=== PATIENT | female | born 1950 | race Caucasian/White ===

== ENCOUNTER → 2016-03-04 | Outpatient (CLI) | payer MEDICARE ==
--- NOTE | 2016-03-04 14:53 | PN ---
DATE OF SERVICE: 03/04/2016 A 66-year-old lady who has been followed in the [facility] for treatment of obstructive sleep apnea-hypopnea syndrome. Recently patient received a new CPAP unit. She likes it, she does not have any problem with the usage of equipment. She likes the new type of nasal pillow mask. She uses equipment every night. During the last month she traveled and she took small travel unit with her and subsequently, she did not use this new unit. Present usage of the new units was 6 out of 30 nights for more than 4 hours. Apnea-hypopnea index reading from the machine is 0.9, which is perfect. Leak is only 1 L/min. [place] Sleepiness Scale is 6. MEDICATIONS: Artane, Risperdal BuSpar, hydroxyzine, Lamictal, Zocor, Prilosec equally the family. During physical exam, the patient in no distress. VITAL SIGNS: BP 140/79, HR 62, RR 16. Weight 152. Temperature 98.2. Oxygen saturation at room air 99%. HEENT: PERRLA, EOMI. LUNGS: Clear. HEART: S1, S2, regular. ABDOMEN: Soft, nontender. EXTREMITIES: No edema. IMPRESSION: 1. Obstructive sleep apnea-hypopnea syndrome on control with CPAP at 6 cm of water. Patient benefiting from treatment. Patient did not show good compliance with the usage of new machine that that related to usage of her travel unit, because she was on location for the last month. 2. Acid reflux. 3. Depression. 4. Anxiety. 5. Hyperlipidemia. PLAN: 1. Continue treatment with CPAP every night for the whole night. 2. Sleep hygiene with regular time in bed for at least 8 hours. 3. No driving if feeling any sleepiness. Thank you very much for allowing me to participate in the management of your patient. Sincerely, Jhon Andrews MD, PhD, FAASM. Diplomat of [place] [employer], Sleep Medicine Board by [place] [employer] [place] [employer] Worker of [facility] [place]
== END | disposition home or self-care (01) ==

== ENCOUNTER → 2016-12-15 | Outpatient (CLI) | payer MEDICARE ==
[2016-12-15 12:00] LABS: CH 29.9; CHCM 31.5; HCT 42.1 % (34.0-46.0); HDW 2.46; HGB 13.2 gm/dL (11.4-16.0); MCHC 31.3 g/dL (31.0-37.0); MCV 95.6 fL (80.0-100.0); Mean Platelet Volume 7.8; RDW 12.8 % (11.5-15.5); WBC 4.4 k/uL (3.8-10.6)
[2016-12-15 12:22] LABS: ALT 19 U/L (9-52); AST 20 U/L (14-36); Alkaline Phosphatase 60 U/L (38-126); Anion Gap 11 mmol/L; Blood Urea Nitrogen 20 mg/dL (7-17); Carbon Dioxide 27 mmol/L (22-30); Chloride 110 mmol/L (98-107); Cholesterol 196 mg/dL (<200); Glucose 97 mg/dL (74-99); HDL Cholesterol 74 mg/dL (40-60); Non-African American GFR(MDRD) 51 (>60 ml/min/1.73 sqM); Potassium 5.2 mmol/L (3.5-5.1); Sodium 148 mmol/L (137-145); Total Bilirubin 0.3 mg/dL (0.2-1.3); Total Protein 7.2 g/dL (6.3-8.2)
== END | disposition home or self-care (01) ==
LOC: LABWHC1 11:06
PROVIDERS: ATTEND Internal Medicine Gastroenterology
DX: E78.00 Pure hypercholesterolemia, unspecified (principal)
CPT/HCPCS: 36415; 80053; 80061; 85027

== ENCOUNTER → 2017-05-25 | Outpatient (CLI) | payer MEDICARE ==
[2017-05-25 08:14] LABS: HCT 41.8 % (34.0-46.0); HGB 13.2 gm/dL (11.4-16.0); MCH 28.2 pg (25.0-35.0); MCHC 31.7 g/dL (31.0-37.0); MCV 89.1 fL (80.0-100.0); Mean Platelet Volume 7.7; Platelet Count 219 k/uL (150-450); RBC 4.69 m/uL (3.80-5.40); RDW 12.8 % (11.5-15.5); WBC 5.4 k/uL (3.8-10.6)
[2017-05-25 08:31] LABS: Albumin 4.6 g/dL (3.5-5.0); Calcium 10.1 mg/dL (8.4-10.2); Potassium 4.2 mmol/L (3.5-5.1); Total Bilirubin 0.6 mg/dL (0.2-1.3); Total Protein 7.3 g/dL (6.3-8.2)
== END | disposition home or self-care (01) ==
LOC: LABWHC1 07:34
PROVIDERS: ATTEND Internal Medicine Gastroenterology
DX: E78.00 Pure hypercholesterolemia, unspecified (principal)
CPT/HCPCS: 36415; 80053; 80061; 85027

== ENCOUNTER → 2017-10-18 | Outpatient (CLI) | payer MEDICARE ==
--- NOTE | 2017-10-18 19:32 | CONS ---
CONSULTATION REASON FOR CONSULTATION: Sleep apnea. This is a 67-year-old female patient coming in to establish herself in my office regarding THANG. The patient has been diagnosed having obstructive sleep apnea. Currently she is on CPAP pressure of 6 cm of water. Diagnosis was established through our Sleep Center as the patient used to see Dr. Andrews. She did not bring her CPAP machine with her today. She claims that she has been using it every night and her snoring has subsided and she is not having any major hypersomnia or sleepiness during the day. She goes to bed around 11:30 p.m., wakes up 6:00 am in the morning, averaging around 7 hours of sleep. She does snore if she does not use her CPAP machine and she has made an effort to continue using her treatment for all these years. I am not sure as far as the exact type of mask interface that she is using. The patient claims that she has a full face mask and this will be ordered through her DME. Her comorbidities include acid reflux, depression, anxiety and hyperlipidemia. PAST MEDICAL HISTORY: 1. Obstructive sleep apnea. 2. Anxiety/depression. 3. Acid reflux. 4. Hyperlipidemia. PAST SURGICAL HISTORY: Previous colonoscopy. DRUG ALLERGIES: WELLBUTRIN. OUTPATIENT MEDICATION LIST: Includes: BuSpar 30 mg twice a day. Lamotrigine 200 mg twice a day. Cogentin twice a day. Thorazine 50 mg twice a day. Naprosyn 500 mg on as needed basis. Topamax 50 mg in the morning 100 in the evening. Requip 0.5 mg twice a day. SOCIAL HISTORY: Nonsmoker. No history of alcohol. No history of IV drugs. FAMILY HISTORY: Negative for sleep apnea. REVIEW OF SYSTEMS: 12-point review of system was done. Positive findings are mentioned above history of present illness. PHYSICAL EXAMINATION: BP is 129/80, pulse 78, respirations 16, temperature 97.9, saturation 98% on room air. Weight is 135, height is 5 feet 4 inches, neck size is 30-1/2 inches. GENERAL APPEARANCE: Calm, comfortable. Head is atraumatic, normocephalic. NECK: Supple. There is no JVD. No goiter or neck masses. LUNGS: Clear to auscultation. HEART: Sounds regular rhythm. Normal S1, S2. No S3. No murmurs. ABDOMEN: Soft, nontender. No organomegaly. EXTREMITIES: No edema. No cyanosis or clubbing. NEUROLOGIC: The patient is awake and alert. There is no focal neurological deficits. PSYCHIATRICALLY: Negative for any acute anxiety or depression at this point in time. IMPRESSION: 1. Symptomatic obstructive sleep apnea still on CPAP pressure of 6. Clinically the patient seems to be improving. I would like to see her CPAP machine for a compliancy check at a later stage. 2. Bipolar disorder/chronic anxiety. 3. Depression. 4. Hyperlipidemia. 5. Acid reflux. PLAN: 1. I reviewed the patient's CPAP supplies. 2. We will schedule a followup appointment to re-evaluate this patient along with her CPAP machine to assess her compliancy. 3. We will continue to follow. MMCASSL / IJN: [id number] /
== END | disposition home or self-care (01) ==
LOC: SLEEP 14:42
PROVIDERS: ATTEND Internal Medicine Critical Care Medicine
DX: G47.33 Obstructive sleep apnea (adult) (pediatric) (principal); F41.9 Anxiety disorder, unspecified; F32.9 Major depressive disorder, single episode, unspecified; E78.5 Hyperlipidemia, unspecified; K21.9 Gastro-esophageal reflux disease without esophagitis; Z88.8 Allergy status to other drugs, medicaments and biological substances; Z79.899 Other long term (current) drug therapy; Z99.89 Dependence on other enabling machines and devices
CPT/HCPCS: 99211

== ENCOUNTER → 2017-11-21 | Outpatient (CLI) | payer MEDICARE ==
--- NOTE | 2017-11-22 16:21 | MR ---
EXAMINATION TYPE: MR brain wo con DATE OF EXAM: 11/21/2017 COMPARISON: NONE HISTORY: Fainting, Tremors, Confusion, HX of TIA TECHNIQUE: Multiplanar, multisequence imaging of the brain and brainstem is performed without IV cont rast. FINDINGS: Diffusion weighted images demonstrate no evidence of a recent infarct or other diffusion abnormality. There is no worrisome extra-axial fluid collection there is ventricular and sulcal prominence consist ent with mild age-related cerebral atrophy. Some T2 hyperintensity periventricular white matter is fe lt to reflect product of minimal to mild chronic small vessel ischemic change in patient of this age. Midline structures demonstrate normal morphology. The craniocervical junction appears within normal limits. Normal vascular flow voids are present. The visualized sinuses are clear and the globes are i ntact. IMPRESSION: Mild to minimal diffuse age-related cerebral atrophy and chronic small vessel ischemic ch amber. No evidence of a recent infarct. No suspicious focal edema.
== END ==
LOC: RADMRIMAIN 15:31
PROVIDERS: ATTEND Psychiatry & Neurology Neurology
DX: G31.1 Senile degeneration of brain, not elsewhere classified (principal); I67.82 Cerebral ischemia; Z86.73 Personal history of transient ischemic attack (TIA), and cerebral infarction without residual deficits
CPT/HCPCS: 70551

== ENCOUNTER → 2018-01-20 | Outpatient (CLI) | payer MEDICARE ==
--- NOTE | 2018-01-20 07:50 | MR ---
EXAMINATION TYPE: MR lumbar spine wo con DATE OF EXAM: 01/20/2018 COMPARISON: NONE HISTORY: Low back pain, disc disease L5-S1 level, and right lower extremity radiculopathy all per ord er. Low back pain for 6 months going into right leg per patient. TECHNIQUE: Multiplanar, multisequence imaging of the lumbar spine is performed without IV contrast. FINDINGS: Sagittal images of the lumbar spine show vertebral body heights and alignment to appear sat isfactory. Multilevel disc desiccation is seen but disc space heights are fairly well-maintained. No large posterior disc herniations are seen on sagittal images. The conus medullaris is normal in posi tion and signal ending mid L1 level. The bone marrow signal intensity is within normal limits. No si gnificant spurring is seen. Axial images show the T12-L1 and L1-L2 levels to appear within normal limits. Axial images at L2-L3 and L3-L4 levels show mild broad disc bulges mildly effacing anterior thecal sa c with mild facet degenerative changes bilaterally. Bilateral neural foramina remain patent. Axial images at the L4-L5 level show mild to moderate facet degenerative changes bilaterally. There i s broad-based posterior disc protrusion minimally effacing anterior thecal sac. Bilateral neural fora suri are patent. Axial images at the L5-S1 level show moderate facet degenerative changes bilaterally. There is broad- based posterior disc protrusion minimally effacing anterior thecal sac. Bilateral neural foramina are patent. There is 1.1 cm Tarlov cyst posterior S2 level sagittal image 5 noted. No suspicious incidental retro peritoneal findings are seen. IMPRESSION: Multilevel degenerative changes in the mid to lower lumbar spine as detailed above. No si gnificant herniation seen to account for patient's right-sided radiculopathy type symptoms however.
== END | disposition home or self-care (01) ==
LOC: RADMRIMAIN 07:06
PROVIDERS: ATTEND Orthopaedic Surgery Orthopaedic Surgery of the Spine
DX: M47.816 Spondylosis without myelopathy or radiculopathy, lumbar region (principal)
CPT/HCPCS: 72148

== ENCOUNTER → 2018-09-25 | Outpatient (CLI) | payer MEDICARE | END | disposition home or self-care (01) | LOC: LABWHC1 10:01 | PROVIDERS: ATTEND Psychiatry & Neurology Neurology | DX: R41.0 Disorientation, unspecified (principal); G25.0 Essential tremor; G25.81 Restless legs syndrome; F41.8 Other specified anxiety disorders; Z86.73 Personal history of transient ischemic attack (TIA), and cerebral infarction without residual deficits; Z79.899 Other long term (current) drug therapy | CPT/HCPCS: 36415; 82310; 82652 ==

== ENCOUNTER → 2020-07-29 | Outpatient (CLI) | payer MEDICARE | LOC: SLEEP 13:35 | PROVIDERS: ATTEND Internal Medicine Critical Care Medicine | DX: G47.33 Obstructive sleep apnea (adult) (pediatric) (principal); Z53.9 Procedure and treatment not carried out, unspecified reason ==

== ENCOUNTER → 2020-07-31 | Outpatient (CLI) | payer MEDICARE ==
--- NOTE | 2020-07-31 19:08 | CONS ---
CONSULTATION DATE OF SERVICE: 07/31/2020 70-year-old lady has been re-evaluated in Sleep Center for obstructive sleep apnea- hypopnea syndrome. HISTORY OF PRESENT ILLNESS/SLEEP WAKE EVALUATION: Patient's has history of obstructive sleep apnea since 2013. She was treated with CPAP successfully, but then she stopped snoring, lost weight and stopped using her CPAP equipment about 2 years ago. For the last several months, patient's started to wake up multiple times from sleep up to 7 times with one episode of nocturia. Her sleep schedule now from midnight until 5:00 am. She grinds her teeth. Has sweating during the sleep. No history of hypnagogic hallucinations, sleep paralysis or cataplexy. She changed her weight from about 170 pounds to 129 pounds, which is about 40 pounds less. PAST MEDICAL HISTORY: Positive for hypertension, hyperlipidemia, acid reflux, depression, bipolar. PAST SURGICAL HISTORY: Bladder suspension. MEDICATIONS: Metoprolol 50 mg twice a day. BuSpar 30 mg twice a day. Simvastatin 20 mg once a day. Senna 50 mg twice a day. Omeprazole once a day, losartan hydrochlorothiazide 50-125 mg once a day. SOCIAL HISTORY: Positive for smoking in the past; quit 15 years ago. Alcohol consumption occasional. FAMILY HISTORY: Positive for heart problems. REVIEW OF SYSTEMS: Multiple awakenings from sleep, sleepiness during the day. [place] Sleepiness Scale increased to 11. PHYSICAL EXAMINATION: GENERAL: A 70-year-old lady without distress. BP 159/81, HR 50, RR 12, height 5 feet 5-1/2 inches, weight 129.6 pounds, body mass index 21.1, temperature 96.7, oxygen saturation at room air 98%. HEENT: PERRLA, EOMI. Oropharynx extremely low position of soft palate. Mallampati 4. NECK: Supple, no JVD. Thyroid is not palpable. LUNGS: Clear to percussion and to auscultation. Good air exchange. No wheezing or rhonchi. HEART: S1, S2 regular. No murmurs, gallops, or rubs. ABDOMEN: Soft and nontender. Bowel sounds are present. No organomegaly appreciated. EXTREMITIES: No clubbing or cyanosis. ELDERLY COMPANION: Restless movements of legs. IMPRESSION: 1. History of obstructive sleep apnea in the past, snoring, multiple awakenings from sleep, extremely low position of soft palate. Possible obstructive sleep apnea- hypopnea syndrome at the present time. 2. Restless legs movements during physical exam, possibly periodic limb movements during the sleep. 3. Hypertension. 4. Hyperlipidemia. 5. Acid reflux. 6. History of depression. 7. History of bipolar. 8. Status post bladder suspension. PLAN: 1. Polysomnography for evaluation of patient's breathing during sleep. 2. CPAP/BiPAP titration if sleep study confirms obstructive sleep apnea-hypopnea syndrome. 3. Preferable position during sleep on the side. 4. No driving if patient feels any sleepiness. 5. I will see patient for follow up visit to explain results of testing and following plan. Thank you very much for allowing me to participate in management of your patient. Sincerely, Jhon Andrews MD, PhD, FAASM Diplomat of [place] [employer] [place] [employer] Supervisor of [facility] MMODL / IJN: [id number] /
== END ==
LOC: SLEEP 11:31
PROVIDERS: ATTEND Internal Medicine
DX: G47.33 Obstructive sleep apnea (adult) (pediatric) (principal); I10 Essential (primary) hypertension; E78.5 Hyperlipidemia, unspecified; K21.9 Gastro-esophageal reflux disease without esophagitis; F32.9 Major depressive disorder, single episode, unspecified; F31.9 Bipolar disorder, unspecified; Z88.8 Allergy status to other drugs, medicaments and biological substances; Z87.891 Personal history of nicotine dependence
CPT/HCPCS: 99211

== ENCOUNTER → 2024-04-30 | Outpatient (CLI) | payer MEDICARE ==
[2024-04-30 10:28] LABS: Basophils # (A) 0.06 X 10*3/uL (0.00-0.10); Basophils % (A) 0.8 %; Eosinophils # (A) 0.32 X 10*3/uL (0.04-0.35); Eosinophils % (A) 4.2 %; HCT 40.3 % (37.2-46.3); HGB 12.1 g/dL (12.0-15.0); Lymphocytes # (A) 1.72 X 10*3/uL (0.90-5.00); Lymphocytes % (A) 22.8 %; MCH 26.8 pg (27.0-32.0); MCV 89.4 FL (80.0-97.0); Mean Platelet Volume 12.7 FL (9.5-12.2); Monocytes # (A) 0.69 X 10*3/uL (0.20-1.00); Monocytes % (A) 9.2 %; NRBC Per 100 WBC 0 X 10*3/uL (0.00-0.01); Neutrophils # (A) 4.72 X 10*3/uL (1.80-7.70); Neutrophils % (A) 62.7 %; Platelet Count 230 X 10*3/uL (140-440); RBC 4.51 X 10*6/uL (4.10-5.20); RDW 13.6 % (11.5-14.5); WBC 7.53 X 10*3/uL (4.50-10.00)
[2024-04-30 10:57] LABS: ALT 21 U/L (8-44); AST 23 U/L (13-35); Albumin 4.3 g/dL (3.8-4.9); Albumin/Globulin Ratio 1.72 Ratio (1.60-3.17); Alkaline Phosphatase 89 U/L (41-126); BUN/Creat Ratio 23.33 Ratio (12.00-20.00); Calcium 9.8 mg/dL (8.7-10.3); Carbon Dioxide 27.4 mmol/L (21.6-31.8); Chloride 106 mmol/L (96-109); Globulin 2.5 g/dL (1.6-3.3); Glucose 109 mg/dL (70-110); LDL Cholesterol,Calculated 114.6 mg/dL (0.0-131.0); Potassium 4.8 mmol/L (3.5-5.5); Sodium 145 mmol/L (135-145); Total Bilirubin <0.2 mg/dL (0.3-1.2); Total Protein 6.8 g/dL (6.2-8.2)
== END | disposition home or self-care (01) ==
LOC: LABWHC1 07:01
PROVIDERS: ATTEND Nurse Practitioner Family
DX: Z76.89 Persons encountering health services in other specified circumstances (principal)
CPT/HCPCS: 36415; 80053; 80061; 85025

== ENCOUNTER 2024-07-06 13:42 | Day surgery (SDC) | payer MEDICARE ==
[2024-07-04 10:57] VITALS: BMI 25.0
[2024-07-06 14:28] VITALS: RESP 16; TEMP 96.5
[2024-07-06] MEDS: LACTATED RINGERS 1,000 ML IV ONE (14:31)
[2024-07-06] MEDS: LACTATED RINGERS 1,000 ML IV SCH (14:31)
[2024-07-06] MEDS ORDERED: PROPOFOL 10 MG/ML 20 ML VIAL IV ONE (15:14)
--- NOTE | 2024-07-06 15:33 | P.PCN ---
Date of Procedure: 07/06/24 Procedure(s) Performed: BRIEF HISTORY: Patient is a pleasant 74-year-old pleasant female scheduled for an elective colonoscopy as a part of screening for colorectal neoplasia PROCEDURE PERFORMED: Colonoscopy. PREOPERATIVE DIAGNOSIS: Screening for colon cancer. IV sedation per Anesthesia. PROCEDURE: After informed consent was obtained, the patient, was brought into the endoscopy unit. IV sedation was administered by Anesthesia under continuous monitoring. Digital rectal examination was normal. Initially the Olympus CF-160 flexible video colonoscope was then inserted in the rectum, gradually advanced into the cecum without any difficulty. Careful examination was performed as the scope was gradually being withdrawn. Ileocecal valve and the appendiceal orifice were visualized and appeared normal. Prep was fair. Mucosa of the cecum, ascending colon, transverse colon, descending colon, sigmoid colon, and rectum appeared normal. Scattered sigmoid diverticulosis retroflexion was performed in the rectum and no lesions were seen. The patient tolerated the procedure well. IMPRESSION: Normal-appearing colon from rectum to cecum with no evidence of colorectal neoplasia. Scattered sigmoid diverticulosis. RECOMMENDATIONS: Findings of this examination were discussed with the patient as well as her family. She was advised to have repeat screening colonoscopy at age 81..
[2024-07-06 15:59] VITALS: BP 179/74; PULSE 62
== END 2024-07-06 16:15 ==
LOC: ORWHC2ENDO 13:42
PROVIDERS: ATTEND Internal Medicine Gastroenterology
DX: Z12.11 Encounter for screening for malignant neoplasm of colon (principal); K57.30 Diverticulosis of large intestine without perforation or abscess without bleeding
CPT/HCPCS: J2704; G0121